=== PATIENT | female | born 1950 | race Caucasian/White ===

== ENCOUNTER → 2017-02-26 | Day surgery (SDC) | payer OTHER ==
[~2017-02-26] MED LIST: COQ-10100 MG PO; HYDROCHLOROTHIA25 MG PO; LISINOPRIL-HCT1 EACH PO; LISINOPRIL10 MG PO; LOVAZA1 GM PO; MASON NATURAL600 MG PO; OMEPRAZOLE D/R20 MG PO
--- NOTE | ~2017-02-26 | O ---
[place], [place] OPERATIVE NOTE NAME: BHAVYA CUELLAR [facility] #: [id number] UNIT #: [id number] ROOM: DOCTOR: QUINN EASON MD BIRTHDATE: [birth year] DOS: 02/26/2017 PREOPERATIVE DIAGNOSIS: Cataract, left eye. POSTOPERATIVE DIAGNOSIS: Cataract, left eye. OPERATION: Extracapsular cataract extraction by phacoemulsification with posterior chamber intraocular lens implantation, left eye. ANESTHESIA: Monitored standby. OPERATIVE FINDINGS AND PROCEDURE: 2% Xylocaine topical anesthetic gel was applied to the eye in the preop area. The patient was taken to the operating room and prepped and draped in the standard fashion for sterile intraocular surgery. A time out procedure was performed verifying correct patient, correct site and corrects lens with Kate Eason M.D. The operating microscope was swung into position and the lid speculum was inserted. Using a Janna paracentesis blade, a paracentesis was made through clear cornea. Viscoelastic was used to fill the anterior chamber. Using a metal keratome a 2.4 mm self-sealing clear corneal cataract incision was made temporally at the limbus. Using a pre-bent 25 gauge cystotome needle, a standard continuous curvilinear capsulorrhexis was performed. The anterior capsule was removed with forceps. The lens nucleus was hydrodissected and phacoemulsified in the posterior chamber. Cortical material was removed with the irrigation aspiration hand piece and the posterior capsule was then polished with a curet under irrigation. The posterior chamber and capsular bag were filled with viscoelastic. A posterior chamber intraocular lens manufactured by: [employer], Model #[id number], and 20.0 diopters in strength were then inserted into the posterior chamber and within the capsular bag using the lens cartridge and injector system. Viscoelastic was removed using the irrigation aspiration handpiece. The anterior chamber was filled with balanced salt solution through the paracentesis. Both the paracentesis site and cataract incisions were hydrated with BSS and verified to be water-tight and self-sealing. Cefuroxime 1 mg/0.1 mL was injected into the anterior chamber through the paracentesis site. The incision checked to be water-tight using a Weck-Emily sponge. The integrity of the cataract wound and ocular tension were checked. Lid speculum and drapes were removed. The patient was transferred from the operating room to the recovery room in satisfactory condition. [place], [place] OPERATIVE NOTE NAME: BHAVYA CUELLAR UNIT #: [id number] ROOM: DOCTOR: QUINN EASON MD BIRTHDATE: [birth year] QUINN EASON MD CM:OPRECORD:OPERATIVE NOTE 1535 1606 QUINN EASON MD 02/26/17 1605 interface
[2017-02-26 14:30] VITALS: BP 146/78
[2017-02-26 15:34] VITALS: BP 151/76
[2017-02-26 15:49] VITALS: BP 163/85
[2017-02-26 16:04] VITALS: BP 156/91
== END | disposition home or self-care (01) ==
LOC: SDC 02-20 10:15
DX: H26.9 Unspecified cataract (principal); I10 Essential (primary) hypertension

== ENCOUNTER → 2017-03-05 | Day surgery (SDC) | payer OTHER ==
[~2017-03-05] VITALS: Ht 170.1 cm; Wt 81.6 kg
[~2017-03-05] MED LIST changes: +K2 PLUS D3 TAB1 EACH PO; +TURMERIC500 MG PO; +WOMAN VITAMIN PO; +[UNRECOGNIZED DRUG - OTHER] PO
--- NOTE | ~2017-03-05 | O ---
[place], [place] OPERATIVE NOTE [id number] #: [id number] ROOM: DOCTOR: QUINN EASON MD BIRTHDATE: [birth year] DOS: 03/05/2017 PREOPERATIVE DIAGNOSIS: Cataract, right eye. POSTOPERATIVE DIAGNOSIS: Cataract, right eye. OPERATION: Extracapsular cataract extraction by phacoemulsification with posterior chamber intraocular lens implantation, right eye. ANESTHESIA: Monitored standby. OPERATIVE FINDINGS AND PROCEDURE: 2% Xylocaine topical anesthetic gel was applied to the eye in the preop area. The patient was taken to the operating room and prepped and draped in the standard fashion for sterile intraocular surgery. A time out procedure was performed verifying correct patient, correct site and corrects lens with Kate Eason M.D. The operating microscope was swung into position and the lid speculum was inserted. Using a Janna paracentesis blade, a paracentesis was made through clear cornea. Viscoelastic was used to fill the anterior chamber. Using a metal keratome a 2.4 mm self-sealing clear corneal cataract incision was made temporally at the limbus. Using a pre-bent 25 gauge cystotome needle, a standard continuous curvilinear capsulorrhexis was performed. The anterior capsule was removed with forceps. The lens nucleus was hydrodissected and phacoemulsified in the posterior chamber. Cortical material was removed with the irrigation aspiration hand piece and the posterior capsule was then polished with a curet under irrigation. The posterior chamber and capsular bag were filled with viscoelastic. A posterior chamber intraocular lens manufactured by: [employer], Model #[id number], and 20.5 diopters right eye in strength were then inserted into the posterior chamber and within the capsular bag using the lens cartridge and injector system. Viscoelastic was removed using the irrigation aspiration handpiece. The anterior chamber was filled with balanced salt solution through the paracentesis. Both the paracentesis site and cataract incisions were hydrated with BSS and verified to be water-tight and self-sealing. Cefuroxime 1 mg/1 mL was injected into the anterior chamber through the paracentesis site. The incision checked to be water-tight using a Weck-Emily sponge. The integrity of the cataract wound and ocular tension were checked. Lid speculum and drapes were removed. The patient was transferred from the operating room to the recovery room in satisfactory condition. [place], [place] OPERATIVE NOTE NAME: BHAVYA CUELLAR UNIT #: [id number] ROOM: DOCTOR: QUINN EASON MD BIRTHDATE: [birth year] QUINN EASON MD CM:OPRECORD:OPERATIVE NOTE 1414 1503 QUINN EASON MD 03/05/17 1504 interface
[2017-03-05 09:05] VITALS: BP 160/82
[2017-03-05 11:29] VITALS: BP 147/77
[2017-03-05 11:44] VITALS: BP 141/83
[2017-03-05 11:59] VITALS: BP 145/82
== END | disposition home or self-care (01) ==
LOC: SDC 03-03 13:15
DX: H26.9 Unspecified cataract (principal); I10 Essential (primary) hypertension; Z98.890 Other specified postprocedural states; Z88.8 Allergy status to other drugs, medicaments and biological substances

== ENCOUNTER → 2022-12-20 | Outpatient (CLI) | payer OTHER | END | disposition home or self-care (01) | LOC: RESCLI 00:21 | PROVIDERS: ATTEND Internal Medicine | DX: I48.91 Unspecified atrial fibrillation (principal); K21.9 Gastro-esophageal reflux disease without esophagitis; I10 Essential (primary) hypertension; K59.00 Constipation, unspecified; E78.5 Hyperlipidemia, unspecified; M25.50 Pain in unspecified joint; J30.2 Other seasonal allergic rhinitis; M85.80 Other specified disorders of bone density and structure, unspecified site; Z79.899 Other long term (current) drug therapy; Z90.710 Acquired absence of both cervix and uterus; Z88.8 Allergy status to other drugs, medicaments and biological substances ==

== ENCOUNTER 2023-01-27 22:57 | Emergency (ER) | payer MEDICARE ==
[~2023-01-27] VITALS: Ht 167.6 cm; Wt 78.0 kg
[~2023-01-27 22:57] MED LIST changes: -OMEPRAZOLE D/R20 MG PO; +TOPCARE OMEPRAZ20 MG PO; +TURMERIC500 M2 PO; -TURMERIC500 MG PO
[2023-01-27 23:44] LABS: BASO % 0.5 % (0.0-1.0); EOS # 0.1 10*3/uL (0.0-0.4); EOS % 0.9 % (1.0-4.0); HEMATOCRIT 32.6 % (37.0-47.0); LYMPH # 2.6 10*3/uL (1.3-4.4); MEAN CELL VOLUME 92.6 fl (81.0-99.0); MEAN CORPUSCULAR HGB 31.3 pg (27.0-31.0); MEAN CORPUSCULAR HGB CONC 33.7 g/dl (33.0-37.0); MEAN PLATELET VOLUME 10.2 fl (9.6-12.3); MONO # 0.9 10*3/uL (0.1-1.0); MONO % 9.9 % (3.0-9.0); NEUT # 5.2 10*3/uL (2.3-7.9); NEUT % 59.5 % (47.0-73.0); PLATELET COUNT AUTOMATED 215 10*3/uL (130-400); RED BLOOD COUNT 3.52 10*6/uL (4.10-5.10); RED CELL DISTRI WIDTH 12.3 % (0-14.5); WHITE BLOOD COUNT 8.8 10*3/uL (4.8-10.8)
[2023-01-27] MEDS ORDERED: CARVEDILOL6.25 MG PO (23:50)
[2023-01-27] MEDS ORDERED: LISINOPRIL30 MG PO (23:51)
[2023-01-27] MEDS ORDERED: OMEGA-3-ACID ETH1 GM PO (23:51)
[2023-01-27] MEDS ORDERED: XARE20MG PO (23:51)
[2023-01-27] MEDS ORDERED: HYDROCHLOROTHIA25 M1 PO (23:51)
[2023-01-27 23:57] LABS: ACT PARTIAL THROMBO TIME 29.6 SECONDS (20.0-32.1); INTERNATIONAL NORM RATIO 1.2 (2.0-3.5)
[2023-01-28 00:07] LABS: ALKALINE PHOSPHATASE 51 U/L (46-116); BUN 21 mg/dl (9-23); CHLORIDE 102 mmol/L (98-107); LIPASE 43 U/L (12-53); POTASSIUM 3.8 mmol/L (3.4-5.1); SGPT/ALT 26 U/L (10-49); TOTAL PROTEIN 6.3 gm/dL (6.0-8.0)
== END 2023-01-28 03:40 | disposition home or self-care (01) ==
LOC: ED 22:57
PROVIDERS: Internal Medicine
DX: I48.91 Unspecified atrial fibrillation (principal); I10 Essential (primary) hypertension; Z88.8 Allergy status to other drugs, medicaments and biological substances; Z98.890 Other specified postprocedural states

== ENCOUNTER → 2023-04-20 | Emergency (ER) | payer MEDICARE ==
[~2023-04-20] VITALS: Ht 162.5 cm; Wt 63.5 kg
[~2023-04-20] MED LIST changes: +CARVEDILOL6.25 MG PO; +HYDROCHLOROTHIA25 M1 PO; +LISINOPRIL30 MG PO; +OMEGA-3-ACID ETH1 GM PO; +XARE20MG PO
[2023-04-20 20:39] LABS: BASO # 0.1 10*3/uL (0.0-0.1); BASO % 0.7 % (0.0-1.0); EOS # 0.1 10*3/uL (0.0-0.4); EOS % 1.1 % (1.0-4.0); HEMATOCRIT 37.8 % (37.0-47.0); LYMPH # 2.5 10*3/uL (1.3-4.4); LYMPH % 26.9 % (27.0-41.0); MEAN CELL VOLUME 86.9 fl (81.0-99.0); MEAN CORPUSCULAR HGB 29.2 pg (27.0-31.0); MEAN CORPUSCULAR HGB CONC 33.6 g/dl (33.0-37.0); MEAN PLATELET VOLUME 10.4 fl (9.6-12.3); MONO # 0.9 10*3/uL (0.1-1.0); MONO % 9.7 % (3.0-9.0); NEUT # 5.7 10*3/uL (2.3-7.9); NEUT % 61.4 % (47.0-73.0); PLATELET COUNT AUTOMATED 232 10*3/uL (130-400); RED BLOOD COUNT 4.35 10*6/uL (4.10-5.10); RED CELL DISTRI WIDTH 12.2 % (0-14.5); WHITE BLOOD COUNT 9.2 10*3/uL (4.8-10.8)
[2023-04-20 20:51] LABS: ACT PARTIAL THROMBO TIME 29.3 SECONDS (20.0-32.1); INTERNATIONAL NORM RATIO 1.1 (2.0-3.5)
[2023-04-20 21:02] LABS: ALKALINE PHOSPHATASE 68 U/L (46-116); BUN 23 mg/dl (9-23); CHLORIDE 105 mmol/L (98-107); SGPT/ALT 19 U/L (5-49)
== END ==
LOC: ED 20:13
PROVIDERS: Internal Medicine
DX: I48.91 Unspecified atrial fibrillation (principal); I10 Essential (primary) hypertension; Z88.8 Allergy status to other drugs, medicaments and biological substances; Z98.890 Other specified postprocedural states

== ENCOUNTER 2023-08-03 21:50 | Emergency (ER) | payer MEDICARE ==
[~2023-08-03] VITALS: Ht 167.6 cm; Wt 78.0 kg
[2023-08-03 22:49] LABS: BASO # 0.1 10*3/uL (0.0-0.1); BASO % 0.6 % (0.0-1.0); EOS # 0.2 10*3/uL (0.0-0.4); EOS % 2.6 % (1.0-4.0); LYMPH # 1.8 10*3/uL (1.3-4.4); LYMPH % 22.3 % (27.0-41.0); MEAN CELL VOLUME 89.2 fl (81.0-99.0); MEAN CORPUSCULAR HGB 28.2 pg (27.0-31.0); MEAN CORPUSCULAR HGB CONC 31.6 g/dl (33.0-37.0); MEAN PLATELET VOLUME 10.4 fl (9.6-12.3); MONO # 0.9 10*3/uL (0.1-1.0); MONO % 10.8 % (3.0-9.0); NEUT # 5.1 10*3/uL (2.3-7.9); NEUT % 63.6 % (47.0-73.0); PLATELET COUNT AUTOMATED 173 10*3/uL (130-400); RED BLOOD COUNT 4.15 10*6/uL (4.10-5.10); RED CELL DISTRI WIDTH 12.8 % (0-14.5)
[2023-08-03 23:07] LABS: BUN 20 mg/dl (9-23); CHLORIDE 105 mmol/L (98-107); POTASSIUM 3.9 mmol/L (3.4-5.1)
[2023-08-03] MEDS ORDERED: CARVEDILOL 12.5 MG TAB PO ONE (23:50)
== END 2023-08-04 01:00 | disposition home or self-care (01) ==
LOC: ED 21:50
PROVIDERS: Internal Medicine
DX: I48.20 Chronic atrial fibrillation, unspecified (principal); Z88.8 Allergy status to other drugs, medicaments and biological substances; Z79.899 Other long term (current) drug therapy

== ENCOUNTER → 2023-12-02 | Outpatient (CLI) | payer MEDICARE | END | disposition home or self-care (01) | LOC: RESCLI 00:55 | PROVIDERS: ATTEND Internal Medicine | DX: I10 Essential (primary) hypertension (principal); K21.9 Gastro-esophageal reflux disease without esophagitis; I48.91 Unspecified atrial fibrillation; E78.5 Hyperlipidemia, unspecified; M25.50 Pain in unspecified joint; K59.00 Constipation, unspecified; J30.2 Other seasonal allergic rhinitis; M85.80 Other specified disorders of bone density and structure, unspecified site; Z79.899 Other long term (current) drug therapy; Z88.8 Allergy status to other drugs, medicaments and biological substances; Z98.890 Other specified postprocedural states ==